=== PATIENT | female | born 1980 | race Caucasian/White ===

== ENCOUNTER 2016-09-11 08:05 | Day surgery (SDC) | payer OTHER ==
[~2016-09-11] VITALS: Ht 156.2 cm; Wt 64.8 kg
[2016-09-11] VITALS (11 sets, daily range): BP systolic 99–120; BP diastolic 49–73; PULSE 78–107; RESP 10–23; O2SAT 94–100
[~2016-09-11 08:05] MED LIST: CeFAZolin Inj 2 GM in IV Premix 1 EACH IV ONE; MELO-259 PO
[2016-09-11] MEDS ORDERED: MetoCLOpramide 5 mg/mL 2 mL Inj ONE (08:06)
[2016-09-11] MEDS ORDERED: Phenylephrine/NS-PF 100 mCg/mL 5 mL Syringe IVPUSH ONE (08:06)
[2016-09-11] MEDS ORDERED: Dexamethasone 4 mg/mL Inj ONE (08:06)
[2016-09-11] MEDS ORDERED: EPHEDrine/NS 5 mg/mL 5 mL Syringe ONE (08:06)
[2016-09-11] MEDS ORDERED: fentaNYL-PF 50 mCg/mL 2 mL Inj ONE (08:06)
[2016-09-11] MEDS ORDERED: Propofol 10,000 mCg/mL 20 mL Inj ONE (08:06)
[2016-09-11] MEDS: Lactated Ringer's 1,000 ML IV SCH ×2 (09:00→11:43)
--- NOTE | 2016-09-11 11:13 | PCM.HPANE ---
Patient Data Surgeon Admitting Provider: Attending Provider:Rodrigo Parsons DPM Primary Care Physician:John Other Provider:Quintin Weiss Anesthesia Reason for Visit Left Ankle Ganglion Cyst, Left Ankle Pain Ht/WT & BMI Height (Feet): 5 Height (Inches): 1.5 Weight (Kilograms): 66.22 Body Mass Index 27.00 Allergies Coded Allergies: No Known Allergies (Unverified Allergy, Unknown, 01/07/16) Diabetes History Hx Diabetes?: No Medications Reported Medications Meloxicam 7.5 Mg Tablet7.5 Mg PO DAILY 30 Days Ref 0 09/10/16 Discontinued Scripts Hydrocodone-Acetaminophen 7.5-325 mg 1 Each Tablet1 Tablet PO HS PRN For Pain # 12 TABLET Ref 0 Prov:Marky Lopez PAC 01/07/16 History History of ENT Problems?: No Hx of Heart Problems?: No Cardiovascular History: Denies:: Congestive Heart Failure Hypertension Hx of Respiratory Problem?: No Respiratory History: Denies:: Oxygen Administration Tuberculosis Use of C-PAP Machine Hx Neurologic Problems?: No Hx of GI Problems?: No Hx of Problems?: No Hx Musculoskeletal Problems?: Yes Musculoskeletal History: Positive for:: Musculoskeletal Trauma (left ankle current admission problem) Hx Surgeries?: No Hx Any Other Health Problems?: No Hx Diabetes: No Hx Alcohol Use: Yes ("once or twice a month")Hx Substance Use: No Smoking Status: Former Smoker Never Smoker Have You Smoked inLast 12 mo: No Stop/Bang S-Snoring: Do You Snore Loudly: No T-Tired: feel tired, fatigued: Yes O-Obsered: Observed not breath: No P-Blood Pressure: treated: No B- Body Mass Index > 35 kg/m2: No A- Age over 50: No N- Neck Large Circumference: No G- Gender Male: No REY Total Score: 1 Risk Assessment Category Category 1A: Patient has history of documented sleep apnea, and HAS NOT received any narcotic, sedative or anesthesia administration during this stay. Category 1B: Patient has history of documented sleep apnea, and HAS received any narcotic , sedative or anesthesia administration during this stay Category 2: Patient has SUSPECTED Obstructive Sleep Apnea, and HAS received any narcotic , sedative or anesthesia administration during this stay. Category 3: Patient has SUSPECTED Obstructive Sleep Apnea and HAS NOT received narcotic, sedative or anesthesia administration during this stay. Category 4: Outpatient in Procedural Areas with known sleep apnea or who screen positive for High Risk via the STOP/BANG questionnaire. Exam Exam General Appearance: Alert, Oriented X3, Cooperative, No Acute Distress HEENT/AIRWAY: MP 2 Lungs: Clear to Auscultation, Normal Air Movement Heart: Exam Unremarkable, Regular Rate/Rhythm, No Murmurs/Rubs/Gallops Plan Impression Patient chart reviewed, patient interviewed and anesthestic plan with risks, benefits, and alternatives discussed, and informed consent obtained. ASA Physical Status: ASA1 Normal Healthy Anesthetic Plan: GA Bene/Risks/Altern/Consents: Yes HP Complete Prior to Induction: Yes Edward Martinez MD Sep 11, 2016 07:14
[2016-09-11] MEDS ORDERED: Lactated Ringer's 1,000 ML IV SCH (11:14)
[2016-09-11] MEDS ORDERED: Lactated Ringer's 500 ML IV PRN (11:14)
[2016-09-11] MEDS ORDERED: EPHEDrine Sulfate 50 mg/mL Inj IVPUSH PRN (11:15)
[2016-09-11] MEDS ORDERED: Ondansetron 2 mg/mL 2 mL Inj IVPUSH PRN (11:15)
[2016-09-11] MEDS ORDERED: fentaNYL-PF 50 mCg/mL 2 mL Inj IVPUSH PRN (11:15)
[2016-09-11] MEDS ORDERED: Dexamethasone 4 mg/mL Inj IVPUSH PRN (11:15)
[2016-09-11] MEDS ORDERED: Phenylephrine 10,000 mCg/mL Inj IVPUSH PRN (11:15)
[2016-09-11] MEDS ORDERED: MetoCLOpramide 5 mg/mL 2 mL Inj IVPUSH PRN (11:15)
[2016-09-11] MEDS ORDERED: Lidocaine 1%-Epi 1:100,000 20 mL Inj NERVEBLOCK ONE (11:41)
[2016-09-11] MEDS ORDERED: Bupivacaine-MPF 0.5% 30 mL Inj INFILTRATE ONE (11:41)
[2016-09-11] MEDS ORDERED: Dexamethasone 4 mg/mL Inj INTRARTICU ONE (12:39)
--- NOTE | 2016-09-11 13:18 | PCM.ANEP1 ---
Post Anesthesia Phase 1 PACU Phase 1 Assessment Vital Signs Vital Signs Date Time Temp Pulse Resp B/P Pulse Ox O2 Delivery O2 Flow Rate FiO2 09/11/16 08:31 36.5 78 12 109/73 98 Room Air Anesthetic Administered: GA Level of Alertness: Awake, talking JOHNSTON's with Equal Strength: Yes Pain: Yes Nausea or Vomiting: No Oxygen Delivery: Room Air Lungs: Clear to Auscultation, Normal Air Movement Dermatome Level: Full Sensation Edward Martinez MD Sep 11, 2016 13:18
[2016-09-11] MEDS: HYDROmorphone 1 mg/mL Inj IVPUSH PRN ×2 (13:23→13:33)
--- NOTE | 2016-09-11 13:28 | PCM.PODPO ---
Podiatry Operative Report Date of Service: Sep 11, 2016 Date of Service Sep 11, 2016 Pre Operative Diagnosis Ganglion cyst left sinus tarsi Lateral ankle instability left ankle Post Operative Diagnosis Same as preoperative diagnoses Procedure Excision of left sinus tarsi ganglion cyst Lateral ankle stabilization with modified Brostrm and use of internal brace Surgeon Surgeon: Rodrigo Parsons DPM Assistants: None Indication for Procedure Painful ganglion cyst left sinus tarsi and painful lateral ankle instability Findings Large ganglion cyst emanated from the sinus tarsi encompassing a large amount of the lateral hindfoot Near complete degeneration of the anterior talofibular and calcaneofibular ligament Details of Procedure Patient was identified in the preoperative holding area. All preoperative comorbidities and allergies were identified and thoroughly discussed. The patient was transported into the operating room and placed on the operating room table in the normal supine position. The patient was then prepped and draped in the normal aseptic technique attention was first the lateral aspect of the left foot. A curvilinear incision extending over the distal fibula distally for a total proximally 6 cm in length was made with a #15 blade. Once that initially her skin or subcutaneous neurovascular structures were identified and retracted out of the surgical field. Blunt dissection was carried down with the Metzenbaum scissor to identify deep fascia. A large ganglion cyst was noted emanating from the sinus tarsi with a large amount of surrounding adipose tissue as well. A rongeur was utilized to remove the surrounding adipose tissue the ganglion cyst was sharply debrided from within the sinus tarsi and the cystic lesion was excised. The sinus tarsi was thoroughly inspected and no further cystic tissue was identified. A Bovie was utilized to cauterize the base of the ganglion cyst. This wound was copiously flushed with large amounts of normal saline. Attention was then paid to the lateral ankle. The anterior talofibular ligament was identified and noted to be severely attenuated. The patient had a severe anterior drawer and talar tilt. The anterior talofibular ligament was transected near its insertion into the distal fibula. An Arthrex internal brace was inserted with a 4.75 mm anchor placed into the talus near the origin of the anterior talofibular ligament. A free needle was then utilized to pass the suture through the lateral aspect of the extensor retinaculum. 2 #2.4 mm Arthrex suture anchors were then inserted approximately 1 cm proximal and distal to the desired fibular insertion site of the internal brace. The lateral ankle ligaments were then repaired utilizing the FiberWire associated with the suture anchors incorporating the lateral aspect of the extensor retinaculum into the repair. A 3.5 mm anchor was then utilized to insert the internal brace into the distal aspect of the fibula in the normal surgical technique ensuring not to overly tension the internal brace suture. The ankle was then placed through range of motion and found to be within normal limits passively. The ankle was then stressed and no anterior drawer or talar tilt was noted. This wound again was copiously flushed with large amounts of normal saline. This wound was then closed deeply with number 3. 0 Vicryl and subcuticular closure was performed utilizing 3. 0 Vicryl. Steri-Strips and Mastisol were applied to the skin. The wound was then dressed with Adaptic sterile 4 x 4 gauze Kerlix and a loosely applied Ari bandage. The patient was awoken by anesthesia and transported out of the operating room. No complications occurred during this procedure. Grafts, Implants: Implants-See Implant Record Complications There were no periprocedural complications identified. Condition Stable Anesthetic Administered: GA Catheters: None Output, Estimated Blood Loss: 30 Blood Admin during surgery: No Surgical Cast or Splint: Other Surgical Specimen Removed: No Specimen sent to Pathology: No Post Operative Plan Ice and elevate left lower extremity Partial weightbearing to the left heel as needed Please dispense surgical shoe Keep dressing clean dry and intact Contact our office with any questions or concerns regarding care Discharged to home when stable Advance diet as tolerated Follow-up within one week Rodrigo Pasrons DPM Sep 11, 2016 13:28
[2016-09-11] MEDS ORDERED: HYDROcodone-APAP 5-325 mg Tablet PO PRN (13:30)
[2016-09-11] MEDS ORDERED: Lactated Ringer's 1,000 ML IV ONE (13:41)
--- NOTE | 2016-09-11 15:15 | PCM.ANEP2 ---
Post Anesthesia Evaluation ASA/CMS Post Anesthesia VS in Patient's Normal Range?: Yes Resp Stable; Airway Patent?: Yes CV Function & Hydration Stable: Yes Mental Status Recovered?: Yes Pain control Satisfactory?: Yes N/V Control Satisfactory?: Yes Edward Martinez MD Sep 11, 2016 15:15
== END 2016-09-11 23:59 | disposition home or self-care (01) ==
LOC: SAS 08:05
PROVIDERS: ATTEND Podiatrist Foot & Ankle Surgery
DX: M25.372 Other instability, left ankle (principal); M67.472 Ganglion, left ankle and foot
CPT/HCPCS: 27698; 28090; C1713; J0690; J1100; J1170; J2250; J2370; J2765; J7120